=== PATIENT | male | born 1995 | race Caucasian/White ===

== ENCOUNTER 2023-09-16 18:05 | Emergency (ER) | payer MEDICAID ==
[~2023-09-16] VITALS: Ht 180.3 cm; Wt 77.1 kg
[2023-09-16 18:05] VITALS: BP_SYST 139; PULSE 73; RESP 18; TEMP 97.8; O2SAT 100
[2023-09-16] MEDS ORDERED: HYDR-3917 PO (19:32)
[2023-09-16] MEDS ORDERED: IBUP-1971 PO (19:32)
[2023-09-16 19:49] VITALS: RESP 16; TEMP 97.4
[2023-09-16 19:54] VITALS: BP_SYST 124; PULSE 63; O2SAT 95
== END 2023-09-16 19:55 | disposition home or self-care (01) ==
LOC: SED 18:05
DX: S62.324A Displaced fracture of shaft of fourth metacarpal bone, right hand, initial encounter for closed fracture (principal); R03.0 Elevated blood-pressure reading, without diagnosis of hypertension; F12.90 Cannabis use, unspecified, uncomplicated; W22.8XXA Striking against or struck by other objects, initial encounter; Y93.89 Activity, other specified; Y92.89 Other specified places as the place of occurrence of the external cause; Y99.8 Other external cause status
CPT/HCPCS: 99283